=== PATIENT | female | born 1985 | race Two or more races ===

== ENCOUNTER 2024-10-14 05:30 | Day surgery (SDC) | payer OTHER ==
[2024-10-14] MEDS ORDERED: POVIDONE-IODINE 118 ML BOTT TOP ONE (10:30)
[2024-10-14] MEDS ORDERED: KETOROLAC TROMETHAMINE 30 MG VIAL IV STA (11:02)
== END 2024-10-14 12:50 | disposition home or self-care (01) ==
LOC: CIR.AMB 05:30
PROVIDERS: ATTEND Obstetrics & Gynecology
DX: D25.0 Submucous leiomyoma of uterus (principal); N93.8 Other specified abnormal uterine and vaginal bleeding; N95.0 Postmenopausal bleeding; Z88.1 Allergy status to other antibiotic agents